=== PATIENT | male | born 1975 | race Two or more races ===

== ENCOUNTER 2023-01-12 11:26 | Inpatient (IN) | payer OTHER ==
[2023-01-12 12:09] VITALS: BMI 25.3
[2023-01-12] MEDS ORDERED: guaiFENesin 200 MG/10 ML 10 ML UNIT-DOSE CUPS PO PRN (13:17)
[2023-01-12] MEDS ORDERED: POLYETHYLENE GLYCOL (HEALTHYLAX) 3350 17 GM PACKET PO PRN (13:17)
[2023-01-12] MEDS ORDERED: P-EPHED 60MG/TRIPROLIDI 2.5MG TABLET PO PRN (13:17)
[2023-01-12] MEDS ORDERED: ACETAMINOPHEN 325 MG TABLET (FP) PO PRN (13:17)
[2023-01-12] MEDS ORDERED: hydrOXYzine PAMOATE 25 MG CAPSULE (FP) PO PRN (13:17)
[2023-01-12] MEDS ORDERED: NICOTINE 7 MG/24 HOURS TOPICAL PATCH TD PRN (13:17)
[2023-01-12] MEDS ORDERED: LOPERAMIDE HCL 2 MG CAPSULE PO PRN (13:17)
[2023-01-12] MEDS ORDERED: BENZOCAINE/MENTHOL (CHLORASEPTIC ) LOZENGE MM PRN (13:17)
[2023-01-12] MEDS ORDERED: MAG HYDROX/AL HYDROX/SIMETH 30 ML UNIT-DOSE CUP PO PRN (13:17)
[2023-01-12] MEDS ORDERED: MAGNESIUM HYDROX 2400MG/30ML ORAL SUSPENSION 30 ML CUP PO PRN (13:17)
[2023-01-12] MEDS ORDERED: NICOTINE 10 MG CARTRIDGE (INHALER) IH PRN (13:17)
[2023-01-12] MEDS ORDERED: TUBERCULIN PPD 5 TU/0.1ML VIAL ID ONE (17:05)
[2023-01-12] MEDS: NICOTINE POLACRILEX 2 MG GUM BC PRN ×2 (17:42→21:18)
[2023-01-12] MEDS: THIAMINE HCL 100 MG TABLET (FP) PO SCH (21:15)
[2023-01-12] MEDS: hydrOXYzine PAMOATE 25 MG CAPSULE (FP) PO PRN (21:16)
[2023-01-12] MEDS: QUEtiapine FUMARATE 50 MG TABLET PO PRN (21:17)
[2023-01-12 21:54] LABS: PH,URINE 5.5 (5.0-8.0); URINE APPEARANCE CLEAR; URINE BILIRUBIN NEGATIVE (NEGATIVE); URINE COLOR YELLOW; URINE GLUCOSE (UA) NEGATIVE (NEGATIVE); URINE KETONE NEGATIVE (NEGATIVE); URINE LEUK ESTERASE NEGATIVE (NEGATIVE); URINE NITRITE NEGATIVE (NEGATIVE); URINE PROTEIN NEGATIVE (NEGATIVE); URINE UROBILINOGEN 0.2 mg/dL (0.2-1.0)
[2023-01-12] MEDS ORDERED: MELATONIN 5 MG TABLETS PO SCH (22:00)
[2023-01-13] MEDS: methaDONE HCL 40 MG DISPERSABLE TABLET PO SCH (08:53)
[2023-01-13] MEDS: NICOTINE POLACRILEX 2 MG GUM BC PRN ×3 (08:57→17:23)
[2023-01-13] MEDS: PRENATAL VITAMINS W/ FOLIC ACID TABLET (FP) PO SCH (10:26)
[2023-01-13 12:13] LABS: HEMATOCRIT 37.4 % (35.4-49); HEMOGLOBIN 12.3 GM/dL (11.7-16.9); MCH 27.8 pg (25.7-33.7); MCHC 32.8 g/dl (32.0-35.9); MEAN CELL VOLUME 84.8 fl (80-96); MEAN PLT VOLUME 9.5 fl (7.5-11.1); PLATELET COUNT 149 10^3/uL (134-434); RBC 4.41 M/mm3 (4.00-5.60); RDW 14.3 % (11.9-15.9)
[2023-01-13 12:17] LABS: ALBUMIN 3.4 g/dl (3.4-5.0); CALCIUM 8.5 mg/dL (8.5-10.1)
[2023-01-13 12:20] LABS: CREATININE 0.9 mg/dL (0.55-1.3)
[2023-01-13 12:22] LABS: BILIRUBIN,TOTAL 0.3 mg/dL (0.2-1); TOT PROT 6.7 g/dl (6.4-8.2)
[2023-01-13] MEDS: hydrOXYzine PAMOATE 25 MG CAPSULE (FP) PO PRN ×2 (12:24→17:23)
[2023-01-13 12:42] LABS: SYPHILIS W/ RPR CONF NON-REACTIVE (NONREACTIVE)
[2023-01-13] MEDS: POTASSIUM CHLORIDE TABS 20 MEQ TABLET.ER (FP) PO SCH ×2 (14:17→17:23)
[2023-01-13] MEDS: THIAMINE HCL 100 MG TABLET (FP) PO SCH (21:45)
[2023-01-13] MEDS: QUEtiapine FUMARATE 50 MG TABLET PO PRN (21:45)
[2023-01-14] MEDS: methaDONE HCL 40 MG DISPERSABLE TABLET PO SCH (06:15)
[2023-01-14] MEDS: NICOTINE POLACRILEX 2 MG GUM BC PRN ×4 (06:16→21:34)
[2023-01-14] MEDS: hydrOXYzine PAMOATE 25 MG CAPSULE (FP) PO PRN ×2 (09:56→13:25)
[2023-01-14] MEDS: PRENATAL VITAMINS W/ FOLIC ACID TABLET (FP) PO SCH (09:56)
[2023-01-14] MEDS: THIAMINE HCL 100 MG TABLET (FP) PO SCH (21:32)
[2023-01-14] MEDS: QUEtiapine FUMARATE 50 MG TABLET PO PRN (21:33)
[2023-01-15] MEDS: methaDONE HCL 40 MG DISPERSABLE TABLET PO SCH (05:53)
[2023-01-15] MEDS: NICOTINE POLACRILEX 2 MG GUM BC PRN ×4 (05:55→21:14)
[2023-01-15] MEDS: hydrOXYzine PAMOATE 25 MG CAPSULE (FP) PO PRN ×3 (09:49→21:14)
[2023-01-15] MEDS: PRENATAL VITAMINS W/ FOLIC ACID TABLET (FP) PO SCH (09:50)
[2023-01-15] MEDS: THIAMINE HCL 100 MG TABLET (FP) PO SCH (21:14)
[2023-01-15] MEDS: QUEtiapine FUMARATE 50 MG TABLET PO PRN (21:15)
[2023-01-16] MEDS: methaDONE HCL 40 MG DISPERSABLE TABLET PO SCH (06:17)
[2023-01-16] MEDS: NICOTINE POLACRILEX 2 MG GUM BC PRN ×4 (06:18→15:54)
[2023-01-16] MEDS: PRENATAL VITAMINS W/ FOLIC ACID TABLET (FP) PO SCH (10:09)
[2023-01-16] MEDS: GABAPENTIN 100 MG CAPSULE PO SCH (21:20)
[2023-01-16] MEDS: THIAMINE HCL 100 MG TABLET (FP) PO SCH (21:20)
[2023-01-17] MEDS: methaDONE HCL 40 MG DISPERSABLE TABLET PO SCH (06:01)
[2023-01-17] MEDS: NICOTINE POLACRILEX 2 MG GUM BC PRN ×5 (06:02→21:21)
[2023-01-17] MEDS: GABAPENTIN 100 MG CAPSULE PO SCH ×3 (06:02→21:20)
[2023-01-17] MEDS: PRENATAL VITAMINS W/ FOLIC ACID TABLET (FP) PO SCH (10:00)
[2023-01-17] MEDS: THIAMINE HCL 100 MG TABLET (FP) PO SCH (21:20)
[2023-01-18] MEDS: methaDONE HCL 40 MG DISPERSABLE TABLET PO SCH (06:01)
[2023-01-18] MEDS: GABAPENTIN 100 MG CAPSULE PO SCH ×3 (06:02→21:19)
[2023-01-18] MEDS: NICOTINE POLACRILEX 2 MG GUM BC PRN ×6 (06:02→21:20)
[2023-01-18] MEDS: PRENATAL VITAMINS W/ FOLIC ACID TABLET (FP) PO SCH (09:33)
[2023-01-18] MEDS: IBUPROFEN 400 MG TABLET (FP) PO PRN (12:14)
[2023-01-18] MEDS: THIAMINE HCL 100 MG TABLET (FP) PO SCH (21:19)
[2023-01-19] MEDS: methaDONE HCL 40 MG DISPERSABLE TABLET PO SCH (06:07)
[2023-01-19] MEDS: GABAPENTIN 100 MG CAPSULE PO SCH ×3 (06:07→21:18)
[2023-01-19] MEDS: NICOTINE POLACRILEX 2 MG GUM BC PRN ×5 (07:51→21:19)
[2023-01-19] MEDS: PRENATAL VITAMINS W/ FOLIC ACID TABLET (FP) PO SCH (09:52)
[2023-01-19] MEDS: IBUPROFEN 400 MG TABLET (FP) PO PRN (13:16)
[2023-01-19] MEDS ORDERED: methaDONE HCL 40 MG DISPERSABLE TABLET PO SCH (14:27)
[2023-01-19 17:56] LABS: CALCIUM 8.7 mg/dL (8.5-10.1)
[2023-01-19 17:57] LABS: ALBUMIN 3.8 g/dl (3.4-5.0); BLOOD UREA NITROGEN 13.4 mg/dL (7-18)
[2023-01-19 18:00] LABS: CREATININE 0.8 mg/dL (0.55-1.3)
[2023-01-19 18:02] LABS: BILIRUBIN,TOTAL 0.4 mg/dL (0.2-1); TOT PROT 7.6 g/dl (6.4-8.2)
[2023-01-19] MEDS: THIAMINE HCL 100 MG TABLET (FP) PO SCH (21:18)
[2023-01-20] MEDS ORDERED: methaDONE HCL 40 MG DISPERSABLE TABLET PO SCH (06:00)
[2023-01-20] MEDS: GABAPENTIN 100 MG CAPSULE PO SCH ×3 (06:01→21:30)
[2023-01-20] MEDS: NICOTINE POLACRILEX 2 MG GUM BC PRN ×4 (06:02→21:30)
[2023-01-20] MEDS: PRENATAL VITAMINS W/ FOLIC ACID TABLET (FP) PO SCH (09:56)
[2023-01-20] MEDS: BACLOFEN 10 MG TABLET (FP) PO PRN (17:24)
[2023-01-20] MEDS: THIAMINE HCL 100 MG TABLET (FP) PO SCH (21:30)
[2023-01-21] MEDS: NICOTINE POLACRILEX 2 MG GUM BC PRN ×5 (05:52→21:12)
[2023-01-21] MEDS: GABAPENTIN 100 MG CAPSULE PO SCH ×3 (05:53→21:11)
[2023-01-21] MEDS: PRENATAL VITAMINS W/ FOLIC ACID TABLET (FP) PO SCH (09:27)
[2023-01-21] MEDS: BACLOFEN 10 MG TABLET (FP) PO PRN ×2 (09:28→21:11)
[2023-01-21] MEDS: THIAMINE HCL 100 MG TABLET (FP) PO SCH (21:11)
[2023-01-22] MEDS: GABAPENTIN 100 MG CAPSULE PO SCH ×3 (06:01→21:15)
[2023-01-22] MEDS: NICOTINE POLACRILEX 2 MG GUM BC PRN ×4 (06:05→21:15)
[2023-01-22] MEDS: BACLOFEN 10 MG TABLET (FP) PO PRN ×2 (09:37→21:15)
[2023-01-22] MEDS: PRENATAL VITAMINS W/ FOLIC ACID TABLET (FP) PO SCH (09:37)
[2023-01-22] MEDS: THIAMINE HCL 100 MG TABLET (FP) PO SCH (21:15)
[2023-01-23] MEDS: GABAPENTIN 100 MG CAPSULE PO SCH ×3 (06:49→21:09)
[2023-01-23] MEDS: NICOTINE POLACRILEX 2 MG GUM BC PRN ×4 (06:49→21:10)
[2023-01-23] MEDS: PRENATAL VITAMINS W/ FOLIC ACID TABLET (FP) PO SCH (09:45)
[2023-01-23] MEDS: BACLOFEN 10 MG TABLET (FP) PO PRN ×2 (11:51→21:09)
[2023-01-23] MEDS: THIAMINE HCL 100 MG TABLET (FP) PO SCH (21:10)
[2023-01-24] MEDS: GABAPENTIN 100 MG CAPSULE PO SCH ×3 (06:05→21:05)
[2023-01-24] MEDS: NICOTINE POLACRILEX 2 MG GUM BC PRN ×5 (06:07→21:07)
[2023-01-24] MEDS: PRENATAL VITAMINS W/ FOLIC ACID TABLET (FP) PO SCH (10:24)
[2023-01-24] MEDS: BACLOFEN 10 MG TABLET (FP) PO PRN ×2 (10:26→21:05)
[2023-01-24] MEDS: THIAMINE HCL 100 MG TABLET (FP) PO SCH (21:05)
[2023-01-25] MEDS: GABAPENTIN 100 MG CAPSULE PO SCH ×3 (06:12→21:33)
[2023-01-25] MEDS: NICOTINE POLACRILEX 2 MG GUM BC PRN ×5 (06:13→21:34)
[2023-01-25] MEDS: PRENATAL VITAMINS W/ FOLIC ACID TABLET (FP) PO SCH (09:53)
[2023-01-25] MEDS: BACLOFEN 10 MG TABLET (FP) PO PRN ×2 (09:54→21:33)
[2023-01-25] MEDS: THIAMINE HCL 100 MG TABLET (FP) PO SCH (21:33)
[2023-01-26] MEDS: GABAPENTIN 100 MG CAPSULE PO SCH ×3 (06:21→21:08)
[2023-01-26] MEDS: NICOTINE POLACRILEX 2 MG GUM BC PRN ×3 (06:23→21:08)
[2023-01-26 07:00] VITALS: PULSE 66
[2023-01-26] MEDS: PRENATAL VITAMINS W/ FOLIC ACID TABLET (FP) PO SCH (09:56)
[2023-01-26] MEDS: BACLOFEN 10 MG TABLET (FP) PO PRN ×2 (09:56→21:08)
[2023-01-26] MEDS: THIAMINE HCL 100 MG TABLET (FP) PO SCH (21:08)
[2023-01-27] MEDS: GABAPENTIN 100 MG CAPSULE PO SCH (06:09)
[2023-01-27] MEDS: NICOTINE POLACRILEX 2 MG GUM BC PRN (06:11)
[2023-01-27 06:57] VITALS: BP 138/96; RESP 17; TEMP 97.1
[2023-01-27] MEDS: BACLOFEN 10 MG TABLET (FP) PO PRN (09:51)
[2023-01-27] MEDS: PRENATAL VITAMINS W/ FOLIC ACID TABLET (FP) PO SCH (09:51)
== END 2023-01-27 09:57 | disposition home or self-care (01) | DRG 772 ==
LOC: YASAS 11:26 → Y3W 16:39
PROVIDERS: ADMIT Allergy & Immunology; ATTEND Psychiatry & Neurology Pain Medicine
PROC: HZ42ZZZ Group Counseling for Substance Abuse Treatment, Cognitive-Behavioral (ICD-10-PCS; principal; 2023-01-12)
DX: F11.20 Opioid dependence, uncomplicated (principal); F14.20 Cocaine dependence, uncomplicated; F17.210 Nicotine dependence, cigarettes, uncomplicated; F19.280 Other psychoactive substance dependence with psychoactive substance-induced anxiety disorder; F19.282 Other psychoactive substance dependence with psychoactive substance-induced sleep disorder; F41.9 Anxiety disorder, unspecified; E87.6 Hypokalemia; R94.31 Abnormal electrocardiogram [ECG] [EKG]
CPT/HCPCS: 36415; 80053; 81003; 82962; 85027; 86780; 86803; 87811; 93005; 93010; C9803-CS; J0475; U0003; U0005

== ENCOUNTER 2023-03-29 13:18 | Inpatient (IN) | payer OTHER ==
[2023-03-29 14:29] VITALS: BMI 26.6
[2023-03-29] MEDS ORDERED: IBUPROFEN 600 MG TABLET (FP) PO PRN (16:30)
[2023-03-29] MEDS ORDERED: ACETAMINOPHEN 325 MG TABLET (FP) PO PRN (16:30)
[2023-03-29] MEDS ORDERED: NALOXONE HCL (KLOXXADO) 8 MG SPRAY NS PRN (16:30)
[2023-03-29] MEDS ORDERED: BENZONATATE 200 MG CAPSULE PO PRN (16:30)
[2023-03-29] MEDS ORDERED: BENZOCAINE/MENTHOL (CHLORASEPTIC ) LOZENGE MM PRN (16:30)
[2023-03-29] MEDS ORDERED: AMMONIUM LACTATE 12% LOTION 225 GM BOTTLE TP PRN (16:30)
[2023-03-29] MEDS ORDERED: P-EPHED 60MG/TRIPROLIDI 2.5MG TABLET PO PRN (16:30)
[2023-03-29] MEDS ORDERED: MAG HYDROX/AL HYDROX/SIMETH 30 ML UNIT-DOSE CUP PO PRN (16:30)
[2023-03-29] MEDS ORDERED: NALOXONE HCL 0.4 MG/ML VIAL IM PRN (16:30)
[2023-03-29] MEDS ORDERED: guaiFENesin 600 MG TABLET.ER (FP) PO PRN (16:30)
[2023-03-29] MEDS ORDERED: POLYETHYLENE GLYCOL (HEALTHYLAX) 3350 17 GM PACKET PO PRN (16:30)
[2023-03-29] MEDS ORDERED: COLLOIDAL OATMEAL 1 BAR EACH TP PRN (16:30)
[2023-03-29] MEDS ORDERED: LOPERAMIDE HCL 2 MG CAPSULE PO PRN (16:30)
[2023-03-29] MEDS ORDERED: IBUPROFEN 400 MG TABLET (FP) PO PRN (16:30)
[2023-03-29] MEDS ORDERED: METHOCARBAMOL 500 MG TABLET PO PRN (16:32)
[2023-03-29] MEDS ORDERED: cloNIDine HCL 0.1 MG TABLET PO ONE (17:30)
[2023-03-29] MEDS: hydrOXYzine PAMOATE 25 MG CAPSULE (FP) PO PRN (21:25)
[2023-03-29] MEDS: THIAMINE HCL 100 MG TABLET (FP) PO SCH (21:25)
[2023-03-29] MEDS: MELATONIN 5 MG TABLETS PO SCH (21:25)
[2023-03-29] MEDS: NICOTINE POLACRILEX 2 MG GUM BUC PRN (21:26)
[2023-03-30] MEDS: hydrOXYzine PAMOATE 25 MG CAPSULE (FP) PO PRN (05:56)
[2023-03-30] MEDS: NICOTINE POLACRILEX 2 MG GUM BUC PRN ×3 (05:57→21:25)
[2023-03-30] MEDS ORDERED: methaDONE HCL 10 MG TABLET PO SCH (08:45)
[2023-03-30] MEDS: PRENATAL VITAMINS W/ FOLIC ACID TABLET (FP) PO SCH (09:01)
[2023-03-30] MEDS: GABAPENTIN 100 MG CAPSULE PO SCH ×3 (10:48→21:24)
[2023-03-30] MEDS: cloNIDine HCL 0.1 MG TABLET PO PRN ×2 (11:18→21:24)
[2023-03-30 11:28] LABS: HEMATOCRIT 40.2 % (35.4-49); HEMOGLOBIN 13.7 GM/dL (11.7-16.9); MCH 28.8 pg (25.7-33.7); MCHC 34.2 g/dl (32.0-35.9); MEAN CELL VOLUME 84.2 fl (80-96); MEAN PLT VOLUME 10.1 fl (7.5-11.1); PLATELET COUNT 159 10^3/uL (134-434); RBC 4.77 M/mm3 (4.00-5.60); RDW 14.8 % (11.9-15.9); WHITE BLOOD COUNT 6.8 K/mm3 (4.0-10.0)
[2023-03-30 11:31] LABS: URINE APPEARANCE CLEAR; URINE BILIRUBIN NEGATIVE (NEGATIVE); URINE COLOR YELLOW; URINE GLUCOSE (UA) NEGATIVE (NEGATIVE); URINE KETONE NEGATIVE (NEGATIVE); URINE LEUK ESTERASE NEGATIVE (NEGATIVE); URINE NITRITE NEGATIVE (NEGATIVE); URINE PROTEIN NEGATIVE (NEGATIVE); URINE UROBILINOGEN 0.2 mg/dL (0.2-1.0)
[2023-03-30 11:34] LABS: POTASSIUM 4.1 mmol/L (3.5-5.1)
[2023-03-30 11:40] LABS: CALCIUM 9.4 mg/dL (8.5-10.1)
[2023-03-30 11:41] LABS: BLOOD UREA NITROGEN 14.2 mg/dL (7-18)
[2023-03-30 11:45] LABS: BILIRUBIN,TOTAL 0.6 mg/dL (0.2-1); TOT PROT 7.6 g/dl (6.4-8.2)
[2023-03-30 12:41] LABS: SYPHILIS W/ RPR CONF NON-REACTIVE (NONREACTIVE)
[2023-03-30] MEDS: MELATONIN 5 MG TABLETS PO SCH (21:24)
[2023-03-30] MEDS: THIAMINE HCL 100 MG TABLET (FP) PO SCH (21:24)
[2023-03-31] MEDS: GABAPENTIN 100 MG CAPSULE PO SCH ×3 (05:47→21:10)
[2023-03-31] MEDS: cloNIDine HCL 0.1 MG TABLET PO PRN ×3 (05:50→21:11)
[2023-03-31] MEDS: hydrOXYzine PAMOATE 25 MG CAPSULE (FP) PO PRN (05:50)
[2023-03-31] MEDS: NICOTINE POLACRILEX 2 MG GUM BUC PRN ×2 (05:51→13:15)
[2023-03-31] MEDS: PRENATAL VITAMINS W/ FOLIC ACID TABLET (FP) PO SCH (09:34)
[2023-03-31] MEDS: THIAMINE HCL 100 MG TABLET (FP) PO SCH (21:10)
[2023-03-31] MEDS: MELATONIN 5 MG TABLETS PO SCH (21:10)
[2023-04-01] MEDS: GABAPENTIN 100 MG CAPSULE PO SCH ×3 (06:14→21:06)
[2023-04-01] MEDS: cloNIDine HCL 0.1 MG TABLET PO PRN ×2 (06:16→21:06)
[2023-04-01] MEDS: NICOTINE POLACRILEX 2 MG GUM BUC PRN ×3 (09:39→21:06)
[2023-04-01] MEDS: PRENATAL VITAMINS W/ FOLIC ACID TABLET (FP) PO SCH (09:39)
[2023-04-01] MEDS: MELATONIN 5 MG TABLETS PO SCH (21:05)
[2023-04-01] MEDS: THIAMINE HCL 100 MG TABLET (FP) PO SCH (21:05)
[2023-04-02] MEDS: GABAPENTIN 100 MG CAPSULE PO SCH ×3 (06:01→21:01)
[2023-04-02] MEDS: cloNIDine HCL 0.1 MG TABLET PO PRN ×2 (06:01→17:47)
[2023-04-02] MEDS: NICOTINE POLACRILEX 2 MG GUM BUC PRN ×3 (10:04→21:02)
[2023-04-02] MEDS: PRENATAL VITAMINS W/ FOLIC ACID TABLET (FP) PO SCH (10:04)
[2023-04-02] MEDS: THIAMINE HCL 100 MG TABLET (FP) PO SCH (21:01)
[2023-04-02] MEDS: MELATONIN 5 MG TABLETS PO SCH (21:01)
[2023-04-03] MEDS: GABAPENTIN 100 MG CAPSULE PO SCH ×3 (06:07→21:16)
[2023-04-03] MEDS: NICOTINE POLACRILEX 2 MG GUM BUC PRN ×3 (09:44→21:17)
[2023-04-03] MEDS: PRENATAL VITAMINS W/ FOLIC ACID TABLET (FP) PO SCH (09:44)
[2023-04-03] MEDS: MELATONIN 5 MG TABLETS PO SCH (21:16)
[2023-04-03] MEDS: THIAMINE HCL 100 MG TABLET (FP) PO SCH (21:16)
[2023-04-03] MEDS: cloNIDine HCL 0.1 MG TABLET PO PRN (21:17)
[2023-04-04] MEDS: cloNIDine HCL 0.1 MG TABLET PO PRN (06:00)
[2023-04-04] MEDS: GABAPENTIN 100 MG CAPSULE PO SCH ×3 (06:01→21:20)
[2023-04-04] MEDS: PRENATAL VITAMINS W/ FOLIC ACID TABLET (FP) PO SCH (10:24)
[2023-04-04] MEDS: NICOTINE POLACRILEX 2 MG GUM BUC PRN ×2 (13:09→16:37)
[2023-04-04] MEDS: MELATONIN 5 MG TABLETS PO SCH (21:20)
[2023-04-04] MEDS: THIAMINE HCL 100 MG TABLET (FP) PO SCH (21:21)
[2023-04-05] MEDS: GABAPENTIN 100 MG CAPSULE PO SCH ×3 (06:17→21:08)
[2023-04-05] MEDS: cloNIDine HCL 0.1 MG TABLET PO PRN ×2 (06:18→21:08)
[2023-04-05] MEDS: PRENATAL VITAMINS W/ FOLIC ACID TABLET (FP) PO SCH (09:43)
[2023-04-05] MEDS: NICOTINE POLACRILEX 2 MG GUM BUC PRN ×2 (09:43→13:05)
[2023-04-05] MEDS: MELATONIN 5 MG TABLETS PO SCH (21:07)
[2023-04-05] MEDS: THIAMINE HCL 100 MG TABLET (FP) PO SCH (21:07)
[2023-04-06] MEDS: GABAPENTIN 100 MG CAPSULE PO SCH ×3 (06:02→21:24)
[2023-04-06] MEDS: NICOTINE POLACRILEX 2 MG GUM BUC PRN ×3 (06:05→21:24)
[2023-04-06] MEDS: PRENATAL VITAMINS W/ FOLIC ACID TABLET (FP) PO SCH (09:57)
[2023-04-06] MEDS: THIAMINE HCL 100 MG TABLET (FP) PO SCH (21:24)
[2023-04-06] MEDS: cloNIDine HCL 0.1 MG TABLET PO PRN (21:24)
[2023-04-06] MEDS: MELATONIN 5 MG TABLETS PO SCH (21:24)
[2023-04-07] MEDS: GABAPENTIN 100 MG CAPSULE PO SCH ×3 (05:44→21:05)
[2023-04-07] MEDS: NICOTINE POLACRILEX 2 MG GUM BUC PRN ×4 (05:46→21:06)
[2023-04-07] MEDS: PRENATAL VITAMINS W/ FOLIC ACID TABLET (FP) PO SCH (10:43)
[2023-04-07] MEDS: THIAMINE HCL 100 MG TABLET (FP) PO SCH (21:05)
[2023-04-07] MEDS: MELATONIN 5 MG TABLETS PO SCH (21:05)
[2023-04-07] MEDS: cloNIDine HCL 0.1 MG TABLET PO PRN (21:05)
[2023-04-08] MEDS: GABAPENTIN 100 MG CAPSULE PO SCH ×3 (06:23→21:12)
[2023-04-08] MEDS: NICOTINE POLACRILEX 2 MG GUM BUC PRN ×3 (06:24→21:13)
[2023-04-08] MEDS: PRENATAL VITAMINS W/ FOLIC ACID TABLET (FP) PO SCH (10:48)
[2023-04-08] MEDS: cloNIDine HCL 0.1 MG TABLET PO PRN (21:12)
[2023-04-08] MEDS: MELATONIN 5 MG TABLETS PO SCH (21:12)
[2023-04-08] MEDS: THIAMINE HCL 100 MG TABLET (FP) PO SCH (21:12)
[2023-04-09] MEDS: GABAPENTIN 100 MG CAPSULE PO SCH ×3 (06:06→21:13)
[2023-04-09] MEDS: NICOTINE POLACRILEX 2 MG GUM BUC PRN ×2 (06:09→13:17)
[2023-04-09] MEDS: PRENATAL VITAMINS W/ FOLIC ACID TABLET (FP) PO SCH (10:39)
[2023-04-09] MEDS: THIAMINE HCL 100 MG TABLET (FP) PO SCH (21:13)
[2023-04-09] MEDS: MELATONIN 5 MG TABLETS PO SCH (21:13)
[2023-04-09] MEDS: cloNIDine HCL 0.1 MG TABLET PO PRN (21:14)
[2023-04-10] MEDS: GABAPENTIN 100 MG CAPSULE PO SCH ×3 (05:53→21:42)
[2023-04-10] MEDS: NICOTINE POLACRILEX 2 MG GUM BUC PRN ×3 (05:56→21:42)
[2023-04-10] MEDS: PRENATAL VITAMINS W/ FOLIC ACID TABLET (FP) PO SCH (10:47)
[2023-04-10] MEDS: THIAMINE HCL 100 MG TABLET (FP) PO SCH (21:41)
[2023-04-10] MEDS: MELATONIN 5 MG TABLETS PO SCH (21:42)
[2023-04-11] MEDS: GABAPENTIN 100 MG CAPSULE PO SCH ×3 (05:36→21:07)
[2023-04-11] MEDS: NICOTINE POLACRILEX 2 MG GUM BUC PRN ×3 (05:37→21:07)
[2023-04-11] MEDS: PRENATAL VITAMINS W/ FOLIC ACID TABLET (FP) PO SCH (10:40)
[2023-04-11] MEDS: cloNIDine HCL 0.1 MG TABLET PO PRN (13:09)
[2023-04-11] MEDS: THIAMINE HCL 100 MG TABLET (FP) PO SCH (21:07)
[2023-04-11] MEDS: MELATONIN 5 MG TABLETS PO SCH (21:07)
[2023-04-12] MEDS: GABAPENTIN 100 MG CAPSULE PO SCH ×3 (06:01→21:23)
[2023-04-12] MEDS: cloNIDine HCL 0.1 MG TABLET PO PRN (06:01)
[2023-04-12] MEDS: PRENATAL VITAMINS W/ FOLIC ACID TABLET (FP) PO SCH (09:34)
[2023-04-12] MEDS: NICOTINE POLACRILEX 2 MG GUM BUC PRN ×2 (13:08→21:23)
[2023-04-12] MEDS: MELATONIN 5 MG TABLETS PO SCH (21:23)
[2023-04-12] MEDS: THIAMINE HCL 100 MG TABLET (FP) PO SCH (21:23)
[2023-04-13] MEDS: GABAPENTIN 100 MG CAPSULE PO SCH ×3 (05:53→21:09)
[2023-04-13] MEDS ORDERED: methaDONE HCL 40 MG DISPERSABLE TABLET PO SCH (06:26)
[2023-04-13] MEDS: NICOTINE POLACRILEX 2 MG GUM BUC PRN ×2 (06:40→21:10)
[2023-04-13] MEDS: PRENATAL VITAMINS W/ FOLIC ACID TABLET (FP) PO SCH (10:28)
[2023-04-13] MEDS: MELATONIN 5 MG TABLETS PO SCH (21:10)
[2023-04-13] MEDS: THIAMINE HCL 100 MG TABLET (FP) PO SCH (21:10)
[2023-04-14] MEDS: GABAPENTIN 100 MG CAPSULE PO SCH ×3 (05:55→21:03)
[2023-04-14] MEDS: NICOTINE POLACRILEX 2 MG GUM BUC PRN ×3 (09:52→22:27)
[2023-04-14] MEDS: PRENATAL VITAMINS W/ FOLIC ACID TABLET (FP) PO SCH (10:02)
[2023-04-14] MEDS: cloNIDine HCL 0.1 MG TABLET PO PRN ×2 (10:02→21:03)
[2023-04-14] MEDS: MELATONIN 5 MG TABLETS PO SCH (21:03)
[2023-04-14] MEDS: THIAMINE HCL 100 MG TABLET (FP) PO SCH (21:03)
[2023-04-15] MEDS: cloNIDine HCL 0.1 MG TABLET PO PRN (05:58)
[2023-04-15] MEDS: GABAPENTIN 100 MG CAPSULE PO SCH ×3 (05:58→21:02)
[2023-04-15] MEDS: PRENATAL VITAMINS W/ FOLIC ACID TABLET (FP) PO SCH (10:14)
[2023-04-15] MEDS: NICOTINE POLACRILEX 2 MG GUM BUC PRN (13:06)
[2023-04-15] MEDS: THIAMINE HCL 100 MG TABLET (FP) PO SCH (21:02)
[2023-04-15] MEDS: MELATONIN 5 MG TABLETS PO SCH (21:02)
[2023-04-16] MEDS: GABAPENTIN 100 MG CAPSULE PO SCH ×3 (06:03→21:03)
[2023-04-16] MEDS: cloNIDine HCL 0.1 MG TABLET PO PRN (06:05)
[2023-04-16 07:28] VITALS: RESP 18
[2023-04-16] MEDS: PRENATAL VITAMINS W/ FOLIC ACID TABLET (FP) PO SCH (09:25)
[2023-04-16] MEDS: MELATONIN 5 MG TABLETS PO SCH (21:03)
[2023-04-16] MEDS: NICOTINE POLACRILEX 2 MG GUM BUC PRN (21:03)
[2023-04-16] MEDS: THIAMINE HCL 100 MG TABLET (FP) PO SCH (21:03)
[2023-04-17] MEDS: cloNIDine HCL 0.1 MG TABLET PO PRN ×2 (02:45→23:34)
[2023-04-17] MEDS: GABAPENTIN 100 MG CAPSULE PO SCH ×3 (05:57→21:04)
[2023-04-17] MEDS: PRENATAL VITAMINS W/ FOLIC ACID TABLET (FP) PO SCH (10:55)
[2023-04-17] MEDS: amLODIPine BESYLATE 2.5 MG TABLET (FP) PO SCH (13:05)
[2023-04-17] MEDS: NICOTINE POLACRILEX 2 MG GUM BUC PRN ×2 (13:06→21:04)
[2023-04-17] MEDS: THIAMINE HCL 100 MG TABLET (FP) PO SCH (21:03)
[2023-04-17] MEDS: MELATONIN 5 MG TABLETS PO SCH (21:03)
[2023-04-18] MEDS: methaDONE 40 MG, methaDONE 30 MG PO SCH (05:59)
[2023-04-18] MEDS: GABAPENTIN 100 MG CAPSULE PO SCH ×3 (06:00→21:03)
[2023-04-18] MEDS ORDERED: methaDONE HCL 40 MG DISPERSABLE TABLET PO SCH (06:00)
[2023-04-18] MEDS: amLODIPine BESYLATE 2.5 MG TABLET (FP) PO SCH (09:59)
[2023-04-18] MEDS: PRENATAL VITAMINS W/ FOLIC ACID TABLET (FP) PO SCH (09:59)
[2023-04-18] MEDS: MELATONIN 5 MG TABLETS PO SCH (21:03)
[2023-04-18] MEDS: THIAMINE HCL 100 MG TABLET (FP) PO SCH (21:03)
[2023-04-18] MEDS: NICOTINE POLACRILEX 2 MG GUM BUC PRN (21:04)
[2023-04-19] MEDS: methaDONE 40 MG, methaDONE 30 MG PO SCH (06:03)
[2023-04-19] MEDS: GABAPENTIN 100 MG CAPSULE PO SCH ×3 (06:03→21:35)
[2023-04-19] MEDS: cloNIDine HCL 0.1 MG TABLET PO PRN (06:38)
[2023-04-19] MEDS: PRENATAL VITAMINS W/ FOLIC ACID TABLET (FP) PO SCH (09:52)
[2023-04-19] MEDS: amLODIPine BESYLATE 2.5 MG TABLET (FP) PO SCH (09:52)
[2023-04-19] MEDS: MAGNESIUM HYDROX 2400MG/30ML ORAL SUSPENSION 30 ML CUP PO PRN (11:05)
[2023-04-19] MEDS: NICOTINE POLACRILEX 2 MG GUM BUC PRN ×2 (13:03→21:35)
[2023-04-19] MEDS: THIAMINE HCL 100 MG TABLET (FP) PO SCH (21:35)
[2023-04-19] MEDS: MELATONIN 5 MG TABLETS PO SCH (21:35)
[2023-04-20] MEDS: methaDONE 40 MG, methaDONE 30 MG PO SCH (05:40)
[2023-04-20] MEDS: GABAPENTIN 100 MG CAPSULE PO SCH ×3 (05:40→21:24)
[2023-04-20] MEDS: NICOTINE POLACRILEX 2 MG GUM BUC PRN (07:16)
[2023-04-20] MEDS: amLODIPine BESYLATE 2.5 MG TABLET (FP) PO SCH (10:23)
[2023-04-20] MEDS: PRENATAL VITAMINS W/ FOLIC ACID TABLET (FP) PO SCH (11:08)
[2023-04-20] MEDS: MELATONIN 5 MG TABLETS PO SCH (21:24)
[2023-04-20] MEDS: THIAMINE HCL 100 MG TABLET (FP) PO SCH (21:24)
[2023-04-21] MEDS: GABAPENTIN 100 MG CAPSULE PO SCH ×3 (06:09→21:38)
[2023-04-21] MEDS: methaDONE 40 MG, methaDONE 30 MG PO SCH (06:09)
[2023-04-21] MEDS: NICOTINE POLACRILEX 2 MG GUM BUC PRN ×3 (06:11→21:39)
[2023-04-21] MEDS: PRENATAL VITAMINS W/ FOLIC ACID TABLET (FP) PO SCH (09:39)
[2023-04-21] MEDS: amLODIPine BESYLATE 2.5 MG TABLET (FP) PO SCH (09:39)
[2023-04-21] MEDS: MAGNESIUM HYDROX 2400MG/30ML ORAL SUSPENSION 30 ML CUP PO PRN (10:26)
[2023-04-21 12:43] VITALS: BP 150/80
[2023-04-21] MEDS: MELATONIN 5 MG TABLETS PO SCH (21:38)
[2023-04-21] MEDS: THIAMINE HCL 100 MG TABLET (FP) PO SCH (21:38)
[2023-04-22] MEDS: GABAPENTIN 100 MG CAPSULE PO SCH ×3 (05:41→21:02)
[2023-04-22] MEDS: methaDONE 40 MG, methaDONE 30 MG PO SCH (05:41)
[2023-04-22] MEDS: NICOTINE POLACRILEX 2 MG GUM BUC PRN ×3 (05:42→21:03)
[2023-04-22] MEDS: amLODIPine BESYLATE 2.5 MG TABLET (FP) PO SCH (09:24)
[2023-04-22] MEDS: PRENATAL VITAMINS W/ FOLIC ACID TABLET (FP) PO SCH (09:24)
[2023-04-22] MEDS: MELATONIN 5 MG TABLETS PO SCH (21:02)
[2023-04-22] MEDS: THIAMINE HCL 100 MG TABLET (FP) PO SCH (21:02)
[2023-04-23] MEDS: GABAPENTIN 100 MG CAPSULE PO SCH ×3 (05:23→21:31)
[2023-04-23] MEDS: methaDONE 40 MG, methaDONE 30 MG PO SCH (05:24)
[2023-04-23 06:19] VITALS: TEMP 97.7
[2023-04-23] MEDS: amLODIPine BESYLATE 2.5 MG TABLET (FP) PO SCH (10:15)
[2023-04-23] MEDS: PRENATAL VITAMINS W/ FOLIC ACID TABLET (FP) PO SCH (10:15)
[2023-04-23] MEDS: NICOTINE POLACRILEX 2 MG GUM BUC PRN ×2 (13:01→21:32)
[2023-04-23] MEDS: THIAMINE HCL 100 MG TABLET (FP) PO SCH (21:31)
[2023-04-23] MEDS: MELATONIN 5 MG TABLETS PO SCH (21:31)
[2023-04-24] MEDS: methaDONE 40 MG, methaDONE 30 MG PO SCH (05:47)
[2023-04-24] MEDS: GABAPENTIN 100 MG CAPSULE PO SCH ×3 (05:48→21:13)
[2023-04-24] MEDS: PRENATAL VITAMINS W/ FOLIC ACID TABLET (FP) PO SCH (09:36)
[2023-04-24] MEDS: amLODIPine BESYLATE 2.5 MG TABLET (FP) PO SCH (09:36)
[2023-04-24] MEDS: NICOTINE POLACRILEX 2 MG GUM BUC PRN ×2 (14:17→21:13)
[2023-04-24] MEDS: THIAMINE HCL 100 MG TABLET (FP) PO SCH (21:13)
[2023-04-24] MEDS: MELATONIN 5 MG TABLETS PO SCH (21:13)
[2023-04-25] MEDS: methaDONE 40 MG, methaDONE 30 MG PO SCH (06:02)
[2023-04-25] MEDS: GABAPENTIN 100 MG CAPSULE PO SCH (06:02)
[2023-04-25 06:31] VITALS: PULSE 89
[2023-04-25] MEDS: PRENATAL VITAMINS W/ FOLIC ACID TABLET (FP) PO SCH (09:08)
[2023-04-25] MEDS: amLODIPine BESYLATE 2.5 MG TABLET (FP) PO SCH (09:08)
== END 2023-04-25 09:38 | disposition home or self-care (01) | DRG 772 ==
LOC: YASAS 13:18 → Y3W 16:48
PROVIDERS: ADMIT Allergy & Immunology; ATTEND Surgery
PROC: HZ42ZZZ Group Counseling for Substance Abuse Treatment, Cognitive-Behavioral (ICD-10-PCS; principal; 2023-03-29)
DX: F14.20 Cocaine dependence, uncomplicated (principal); F11.20 Opioid dependence, uncomplicated; F17.210 Nicotine dependence, cigarettes, uncomplicated; F19.280 Other psychoactive substance dependence with psychoactive substance-induced anxiety disorder; F19.282 Other psychoactive substance dependence with psychoactive substance-induced sleep disorder; F41.9 Anxiety disorder, unspecified; I10 Essential (primary) hypertension; E11.9 Type 2 diabetes mellitus without complications
CPT/HCPCS: 36415; 80053; 81003; 85027; 86780; 86803; 93005; 93010; C9803-CS; U0003; U0005